=== PATIENT | male | born 1960 | race Caucasian/White ===

== ENCOUNTER 2016-04-23 23:55 | Inpatient (IN) | payer MEDICARE, OTHER ==
[~2016-04-23] VITALS: Ht 167.6 cm; Wt 82.1 kg
[~2016-04-23 23:55] MED LIST: ALLO100T PO; AMIO200T2 PO; APIX5TAB PO; ASPI81TA2 PO; ATOR40TA PO; BENA10TA2 PO; CARV25TA2 PO; COLC0.6T69 PO; ERGO500013 PO; FURO40TA5 PO; GLIP5TAB13 PO
[2016-04-24 03:20] VITALS: BP 88/44
[2016-04-24] MEDS ORDERED: NITR0.4T6 SL (03:36)
[2016-04-24] MEDS ORDERED: ATOR40TA PO (03:36)
[2016-04-24] MEDS ORDERED: FEBU40TA PO (03:36)
[2016-04-24] MEDS ORDERED: APIX5TAB PO (03:36)
[2016-04-24] MEDS ORDERED: IV NS 0.9% 1,000 ML IV PRN (03:40)
[2016-04-24] MEDS ORDERED: IV SET PRIMARY PUMP SET 1 EA INFUS.SET MC ONE (03:47)
[2016-04-24] MEDS ORDERED: IV NS 0.9% 1,000 ML ONE (03:48)
[2016-04-24] MEDS ORDERED: ZOLPIDEM TARTRATE 5 MG TABLET PO PRN (04:00)
[2016-04-24] MEDS ORDERED: ENOXAPARIN SODIUM 40 MG/0.4 ML DISP.SYRIN SQ SCH (04:00)
[2016-04-24] MEDS ORDERED: HYDROCODONE/APAP 5/325MG 1 EACH TABLET PO PRN (04:00)
[2016-04-24] MEDS ORDERED: MAGNESIUM HYDROXIDE 30 ML UDC PO PRN (04:00)
[2016-04-24] MEDS ORDERED: ONDANSETRON HCL/PF 4 MG/2 ML VIAL IVP PRN (04:00)
[2016-04-24] MEDS ORDERED: MAG HYDROX/AL HYDROX/SIMETH 30 ML UDC PO PRN (04:00)
[2016-04-24] MEDS ORDERED: Z GUARD REMEDY 2 OZ OINT TP PRN (04:00)
[2016-04-24] MEDS ORDERED: ACETAMINOPHEN 325 MG TABLET PO PRN (04:00)
[2016-04-24] MEDS ORDERED: PIPERACILLIN /TAZOBACTAM 3.375 G in IV D5W 100 ML IV SCH (05:00)
[2016-04-24] MEDS ORDERED: SECONDARY IV SET 1 EA INFUS.SET MC ONE ×4 (05:34→12:30)
[2016-04-24] MEDS ORDERED: IV D5W 100 ML IV ONE (05:34)
[2016-04-24] MEDS ORDERED: PIPERACILLIN /TAZOBACTAM 3.375 G VIAL IV ONE (05:35)
[2016-04-24 05:53] LABS: BASOPHILS % (AUTO) 0.2 % (0.0-2.0); DIFF TOTAL % 100 %; EOSINOPHILS % (AUTO) 0.2 % (0.0-6.0); HEMATOCRIT 35 % (39-51); LYMPHOCYTES # (AUTO) 0.7 /CMM (0.8-4.8); LYMPHOCYTES % (AUTO) 3.9 % (20.0-44.0); MEAN CORPUSCULAR HEMOGLOBIN 31 PG (26.0-33.0); MEAN CORPUSCULAR HGB CONC 34 g/dl (31.0-36.0); MEAN CORPUSCULAR VOLUME 90 fL (80-96); MONOCYTES # (AUTO) 0.5 /CMM (0.1-1.30); MONOCYTES % (AUTO) 2.9 % (2.0-12.0); NEUTROPHILS # (AUTO) 16.2 /CMM (1.8-8.9); NEUTROPHILS % (AUTO) 92.8 % (43.0-81.0); PLATELET COUNT (AUTO) 158 /CMM (150-450); RED BLOOD CELL COUNT(AUTO) 3.88 MIL/uL (4.5-6.0); WHITE BLOOD COUNT (AUTO) 17.4 K/uL (4.3-11.0)
[2016-04-24 06:00] VITALS: BP 95/40
[2016-04-24 06:11] LABS: ALBUMIN 2.8 g/dL (3.4-5.0); BILIRUBIN,TOTAL 0.6 mg/dL (0.2-1.0); CALCIUM, SERUM 7.2 mg/dL (8.5-10.1); PHOSPHORUS 1.5 mg/dL (2.5-4.9); POTASSIUM 3.5 mmol/L (3.5-5.1); TOTAL PROTEIN, SERUM 6.2 g/dL (6.4-8.2)
[2016-04-24] MEDS ORDERED: Magnesium 1GM/D5W 100ML PREMIX 400 ML IV ONE (06:20)
[2016-04-24] MEDS ORDERED: Magnesium 1GM/D5W 100ML PREMIX PIGGYBACK IV ONE (06:30)
[2016-04-24 06:38] VITALS: BP 95/40
[2016-04-24 08:00] VITALS: BP 96/74
[2016-04-24] MEDS ORDERED: FEE PK DOSING 1 MIN EA MC ONE (10:56)
[2016-04-24] MEDS ORDERED: NITROGLYCERIN 0.4 MG/TAB BOTTLE SL SCH (11:00)
[2016-04-24] MEDS ORDERED: BENAZEPRIL HCL 10 MG TABLET PO SCH (11:00)
[2016-04-24] MEDS ORDERED: VANCOMYCIN 1 GM in IV D5W 250 ML IV SCH (11:00)
[2016-04-24] MEDS ORDERED: APIXABAN 5 MG TABLET PO SCH ×2 (11:00→17:00)
[2016-04-24] MEDS ORDERED: COLCHICINE 0.6 MG TABLET PO PRN (11:00)
[2016-04-24] MEDS ORDERED: FUROSEMIDE 40 MG TABLET PO SCH (11:00)
[2016-04-24] MEDS: PANTOPRAZOLE 40 MG VIAL IV SCH (11:05)
[2016-04-24] MEDS: Magnesium 1GM/D5W 100ML PREMIX 100 ML IV SCH ×4 (11:06→16:06)
[2016-04-24] MEDS: PIPERACILLIN /TAZOBACTAM 3.375 G in IV D5W 50 ML IV SCH ×2 (12:06→16:53)
[2016-04-24] MEDS: ASPIRIN 81 MG TAB.CHEW PO SCH (12:10)
[2016-04-24] MEDS: glipiZIDE 5 MG TABLET PO SCH (12:10)
[2016-04-24] MEDS: ATORVASTATIN 40 MG TABLET PO SCH ×2 (12:10→16:54)
[2016-04-24] MEDS: AMIODARONE HCL 200 MG TABLET PO SCH (12:10)
[2016-04-24] MEDS: CARVEDILOL 12.5 MG TABLET PO SCH ×2 (12:38→16:55)
[2016-04-24] MEDS: ALLOPURINOL 100 MG TABLET PO SCH (16:54)
[2016-04-24 18:00] VITALS: BP 96/57
[2016-04-24] MEDS ORDERED: K PHOS NEUTRAL 250 MG TABLET PO ONE (18:00)
[2016-04-24] MEDS: APIXABAN 2.5 MG TABLET PO SCH (18:31)
[2016-04-24 20:00] VITALS: BP 113/57
[2016-04-25] VITALS (7 sets, daily range): BP systolic 104–151; BP diastolic 57–85
[2016-04-25] MEDS: PIPERACILLIN /TAZOBACTAM 3.375 G in IV D5W 50 ML IV SCH ×4 (00:21→16:59)
[2016-04-25] MEDS ORDERED: VANCOMYCIN 1 GM in IV D5W 250 ML IV SCH (05:00)
[2016-04-25 07:04] LABS: BASOPHILS # (AUTO) 0.1 /CMM (0.0-0.2); BASOPHILS % (AUTO) 0.4 % (0.0-2.0); DIFF TOTAL % 100 %; EOSINOPHILS # (AUTO) 1.2 /CMM (0.0-0.7); EOSINOPHILS % (AUTO) 8.2 % (0.0-6.0); HEMATOCRIT 35 % (39-51); HEMOGLOBIN 11.7 g/dL (13.5-17.5); LYMPHOCYTES # (AUTO) 1.8 /CMM (0.8-4.8); LYMPHOCYTES % (AUTO) 11.6 % (20.0-44.0); MEAN CORPUSCULAR HEMOGLOBIN 30 PG (26.0-33.0); MEAN CORPUSCULAR HGB CONC 33 g/dl (31.0-36.0); MEAN CORPUSCULAR VOLUME 90 fL (80-96); MONOCYTES % (AUTO) 6.4 % (2.0-12.0); NEUTROPHILS # (AUTO) 11.2 /CMM (1.8-8.9); NEUTROPHILS % (AUTO) 73.4 % (43.0-81.0); PLATELET COUNT (AUTO) 152 /CMM (150-450); RED BLOOD CELL COUNT(AUTO) 3.88 MIL/uL (4.5-6.0); WHITE BLOOD COUNT (AUTO) 15.2 K/uL (4.3-11.0)
[2016-04-25 07:12] LABS: CALCIUM, SERUM 7.5 mg/dL (8.5-10.1); CREATININE 1.7 mg/dL (0.6-1.3); PHOSPHORUS 2.9 mg/dL (2.5-4.9); POTASSIUM 3.9 mmol/L (3.5-5.1)
[2016-04-25] MEDS: ASPIRIN 81 MG TAB.CHEW PO SCH (08:13)
[2016-04-25] MEDS: PANTOPRAZOLE 40 MG VIAL IV SCH (08:13)
[2016-04-25] MEDS: APIXABAN 2.5 MG TABLET PO SCH ×2 (08:14→16:55)
[2016-04-25] MEDS: CARVEDILOL 12.5 MG TABLET PO SCH ×2 (08:14→16:55)
[2016-04-25] MEDS: AMIODARONE HCL 200 MG TABLET PO SCH (08:14)
[2016-04-25] MEDS: ALLOPURINOL 100 MG TABLET PO SCH (08:15)
[2016-04-25] MEDS: glipiZIDE 5 MG TABLET PO SCH (08:15)
[2016-04-25] MEDS: ATORVASTATIN 40 MG TABLET PO SCH (16:58)
[2016-04-25] MEDS ORDERED: LACTOBACILLUS RHAMNOSUS GG 1 EACH CAP.SPRINK PO SCH (17:00)
[2016-05-08] MEDS ORDERED: ERGOCALCIFEROL (VITAMIN D 2) 50,000 UNIT CAPSULE PO SCH (09:00)
[2016-05-24] MEDS ORDERED: ERGOCALCIFEROL (VITAMIN D 2) 50,000 UNIT CAPSULE PO SCH (09:00)
== END 2016-04-25 18:03 | disposition home or self-care (01) | DRG 73 ==
LOC: TELE1 04-24 03:07
PROVIDERS: ADMIT Family Medicine; ATTEND Family Medicine
DX: G90.8 Other disorders of autonomic nervous system (principal); G93.40 Encephalopathy, unspecified; N17.9 Acute kidney failure, unspecified; I50.22 Chronic systolic (congestive) heart failure; I13.0 Hypertensive heart and chronic kidney disease with heart failure and stage 1 through stage 4 chronic kidney disease, or unspecified chronic kidney disease; E87.2 Acidosis; R50.9 Fever, unspecified; I25.5 Ischemic cardiomyopathy; M10.9 Gout, unspecified; D64.9 Anemia, unspecified; E11.22 Type 2 diabetes mellitus with diabetic chronic kidney disease; I25.10 Atherosclerotic heart disease of native coronary artery without angina pectoris; N18.9 Chronic kidney disease, unspecified; Z87.891 Personal history of nicotine dependence; Z95.810 Presence of automatic (implantable) cardiac defibrillator
CPT/HCPCS: 36415; 71010-TC; 80048-TC; 80053-TC; 82962-TC; 83605-TC; 83735-TC; 84100-TC; 85025-TC; 87040-TC; 97001-TC; C9113; J2543; J3370; J3475; J7030; J7060; Z7610

== ENCOUNTER 2016-04-28 18:56 | Emergency (ER) | payer MEDICARE, OTHER ==
[~2016-04-28] VITALS: Ht 167.6 cm; Wt 82.1 kg
[~2016-04-28 18:56] MED LIST changes: +FEBU40TA PO; +NITR0.4T6 SL
[2016-04-28 19:04] VITALS: BP 126/80
== END 2016-04-28 23:40 | disposition left against medical advice (07) ==
LOC: ER 18:58
DX: Z53.21 Procedure and treatment not carried out due to patient leaving prior to being seen by health care provider (principal)
CPT/HCPCS: A4606; Z7610